=== PATIENT | male | born 1960 | race Caucasian/White ===

== ENCOUNTER 2017-09-14 13:57 | Observation (INO) ==
[2017-09-14] MEDS ORDERED: Aspirin 325 MG TABLET PO ONE (14:20)
--- NOTE | 2017-09-14 14:58 | Emergency Department Note ---
Disposition Clinical Impression: Unstable angina Disposition: Admitted As Inpatient Condition: Good Referrals: NONE,PCP [Primary Care Provider] - Forms: ED Satisfaction Letter Time of Disposition: 17:58 Chest Pain HPI - General Chief Complaint: ED Chest Pain Stated Complaint: chest pain Time Seen by Provider: 09/14/17 14:14 Source: patient Mode of arrival: ambulatory Limitations: no limitations Vital Signs Reviewed: Yes Nursing Notes Reviewed: Yes - History of Present Illness HPI Narrative: 56-year-old male presents to the emergency with chest pain 3 weeks. States he was seen in urgent care a couple weeks ago and they told him he had pericarditis. He did not get seen in the ER. He states he took some ibuprofen for it. He states he has not gotten any better 3 weeks. Associated with fatigue and exhaustion. Slight shortness of breath. No nausea or vomiting. He has no documented coronary history. No smoking. There is a family history of heart problems. Patient has pain that radiates to his back Severity scale (1-10): 2 - Related Data Home Medications Medication Instructions Recorded Confirmed Atorvastatin [Lipitor] 10 mg PO HS 09/14/17 09/14/17 Escitalopram [Lexapro] 10 mg PO DAILY 09/14/17 09/14/17 Losartan/Hydrochlorothiazide 1 tab PO DAILY 09/14/17 09/14/17 [Losartan-Hctz 50-12.5 mg Tab] Meloxicam [Mobic] 15 mg PO DAILY 09/14/17 09/14/17 Allergies Allergy/AdvReac Type Severity Reaction Status Date / Time Hydromorphone [From Dilaudid] Allergy Itching Verified 09/14/17 16:49 Oxycodone Allergy Itching Verified 09/14/17 16:49 Review of Systems: Gen.: No fevers or chills or new weakness Eyes: Denies double vision or any vision changes Ears: Denies any otalgia Pharynx: Denies sore throat CV: Positive for chest pain Respiratory: Denies any cough or sputum production. No shortness of breath. GI: Denies any nausea, vomiting, diarrhea, constipation. Denies abdominal pain Neuro: Denies any headache. No problems with ambulation. No numbness. Skin: Denies any rashes or abrasions Psych: Denies any depression or suicidal or homicidal ideation Musculoskeletal: Denies any arthralgias or myalgias All systems ED: reviewed and negative except as stated. Chest Pain PMH - Past Medical History Medical history: Reports: hypertension Psychiatric history: Reports: depression - Social History Smoking Status: Never smoker Alcohol use: Reports: occasionally Drug use: Reports: none Physical Exam HEENT: Head atraumatic normocephalic. Pharynx clear with no exudates. Oral mucosa moist. Uvula midline. TMs clear bilaterally. Trachea midline. No lymphadenopathy. Heart: Regular rate and rhythm. Normal S1 and S2. No gallops, rubs, or murmurs. Lungs: Clear to auscultation bilaterally. No evidence of any rhonchi wheezing or rales. Abdomen: Soft nontender nondistended. Positive bowel sounds. No peritoneal signs. Extremities: No evidence of cyanosis clubbing or edema. Neuro: Cranial nerves II through XII grossly intact. No focal motor or sensory deficits. Speech is clear. Skin: Normal color. dry. Psych: normal mentation. - General General appearance: alert Course Vital Signs Temperature 97.9 F 09/14/17 13:59 Pulse Rate 114 09/14/17 13:59 Respiratory Rate 18 09/14/17 13:59 Blood Pressure 173/100 09/14/17 13:59 O2 Sat by Pulse Oximetry 98 09/14/17 13:59 Temperature 97.9 F 09/14/17 13:59 Pulse Rate 114 09/14/17 13:59 Respiratory Rate 18 09/14/17 13:59 Blood Pressure 173/100 09/14/17 13:59 O2 Sat by Pulse Oximetry 98 09/14/17 13:59 Oxygen Delivery Oxygen Delivery Room Air Chest Pain - MDM Narrative Medical decision making narrative: Admit for chest pain rule out - Medical Records Medical records reviewed: Yes I reviewed the patient's medical records. - Lab Data Lab results reviewed: Yes I reviewed the patient's lab results. Result diagrams: 09/14/17 14:38 09/14/17 14:38 Lab Results 09/14/17 09/14/17 09/14/17 Range/Units 14:38 14:38 14:38 WBC 9.7 (4.3-11.1) K/mcL RBC 5.66 H (4.19-5.50) M/mcL Hgb 17.4 H (12.9-16.9) g/dL Hct 51.3 H (37.5-50.1) % MCV 90.6 (83.0-100.0) fL MCH 30.7 (28.0-33.3) pg MCHC 33.9 (31.6-35.5) g/dL RDW 13.1 (11.5-14.5) % Plt Count 302 (140-400) K/mcL MPV 11.6 (9.4-12.4) fL Immature Gran % 0.3 (0-4) % Seg Neutrophils % 60.0 % Lymphocytes % 29.9 % Monocytes % 7.2 % Eosinophils % 1.8 % Basophils % 0.8 % Neutrophils # 5.8 (1.6-8.9) K/mcL Lymphocytes # 2.9 (0.6-4.6) K/mcL Monocytes # 0.7 (0.0-1.3) K/mcL Eosinophils # 0.2 (0.0-0.6) K/mcL Basophils # 0.1 (0.0-0.2) K/mcL PT 11.5 (9.4-12.1) Seconds INR 1.1 APTT 25.3 L (26.0-36.0) Seconds Sodium 136 (136-145) mEq/L Potassium 3.8 (3.5-5.1) mEq/L Chloride 102 (98-107) mEq/L Carbon Dioxide 24 (23-29) mEq/L BUN 14 (6-20) mg/dL Creatinine 0.91 (0.70-1.30) mg/dL Est GFR ( Amer) > 60 (> 60) Est GFR (Non-Af Amer) > 60 (> 60) BUN/Creatinine Ratio 15 (6-26) Glucose 115 H (70-105) mg/dL Calculated Osmolality 283 (280-300) Calcium 9.8 (8.6-10.3) mg/dL Troponin I < 0.03 (< 0.04) ng/mL - Radiology Data Radiology results reviewed: Yes I reviewed the patient's radiology results. - EKG Data EKG attestation: Yes I reviewed and interpreted this EKG. EKG results narrative: EKG shows a rate of 109. Sinus tachycardia. TN interval 154. QRS 116. QTC 400. No signs of acute ischemia.
[2017-09-14 15:13] LABS: BUN/Creatinine Ratio 15 (6-26); Blood Urea Nitrogen 14 mg/dL (6-20); Calcium 9.8 mg/dL (8.6-10.3); Carbon Dioxide 24 mEq/L (23-29); Chloride 102 mEq/L (98-107); Glucose 115 mg/dL (70-105); Osmolality,Calculated 283 (280-300); Potassium 3.8 mEq/L (3.5-5.1); Sodium 136 mEq/L (136-145); eGFR For African Americans > 60 (> 60); eGFR For Non-African Americans > 60 (> 60)
[2017-09-14 15:30] LABS: INR 1.1; Prothrombin Time 11.5 Seconds (9.4-12.1)
[2017-09-14 15:32] LABS: Activated Partial Thrombo Time 25.3 Seconds (26.0-36.0)
[2017-09-14 15:36] LABS: Troponin I < 0.03 ng/mL (< 0.04)
[2017-09-14 16:19] LABS: Basophils # 0.1 K/mcL (0.0-0.2); Basophils % 0.8 %; Eosinophils # 0.2 K/mcL (0.0-0.6); Eosinophils % 1.8 %; Hematocrit 51.3 % (37.5-50.1); Hemoglobin 17.4 g/dL (12.9-16.9); Immature Granulocytes % 0.3 % (0-4); Lymphocytes # 2.9 K/mcL (0.6-4.6); Lymphocytes % 29.9 %; Mean Corpuscular HGB Conc 33.9 g/dL (31.6-35.5); Mean Corpuscular Hemoglobin 30.7 pg (28.0-33.3); Mean Corpuscular Volume 90.6 fL (83.0-100.0); Mean Platelet Volume 11.6 fL (9.4-12.4); Monocytes # 0.7 K/mcL (0.0-1.3); Monocytes % 7.2 %; Neutrophils # 5.8 K/mcL (1.6-8.9); Platelet Count 302 K/mcL (140-400); Red Blood Count 5.66 M/mcL (4.19-5.50); Red Cell Distribution Width 13.1 % (11.5-14.5)
[2017-09-14] MEDS ORDERED: Nitroglycerin 0.4 MG TAB.SUBL SL PRN (17:29)
[2017-09-14] MEDS ORDERED: Naloxone 0.4 MG/ML INJ IVP PRN (18:29)
[2017-09-14] MEDS ORDERED: Acetaminophen 325 MG TABLET PO PRN (18:29)
--- NOTE | 2017-09-14 18:50 | Internal Med History&Physical ---
Date of Encounter: 09/14/17 Time of Encounter: 18:35 Assessment and Plan (1) Chest pain Current visit: Yes Status: Acute 1 patient has been experiencing chest pressure for the past 3 weeks was originally diagnosed with pericarditis at an urgent care was given [place] without any relief. The past 3-4 days been experiencing sharp left chest pain radiating to his left shoulder with associated symptoms of fatigue and shortness of breath on exertion. The pain is worse when he lies down and there were no relieving factors. The chest pressure is constant. Given nitroglycerin without any relief. First set of troponins are negative we will continue to trend troponins We will obtain cardiac echo Continuous cardiac monitoring Nitroglycerin as needed for chest pain Continue with aspirin We will obtain CTA to rule out possible PE Consult cardiology as needed Qualifiers: Chest pain type: unspecified Qualified Code(s): R07.9 - Chest pain, unspecified (2) HTN (hypertension) Current visit: Yes Status: Acute Continue with home medications Qualifiers: Hypertension type: essential hypertension Qualified Code(s): I10 - Essential (primary) hypertension (3) HLD (hyperlipidemia) Current visit: No Status: Chronic Continue with statin-check lipid profile Qualifiers: Hyperlipidemia type: unspecified Qualified Code(s): E78.5 - Hyperlipidemia , unspecified (4) DVT prophylaxis Current visit: Yes Status: Acute [facility] Internal Medicine - H&P: HPI Chief complaint: CP Admitted From: Emergency Dept Plans for Post Hospital Care: Home History of present illness: Mr. Carter is a 56 year old male past uncle history of hypertension hyperlipidemia skin cancer questionable hepatitis B in 1988. According to the patient has been experiencing chest pressure describes as a dull ache which is midsternal nonradiating over the past 3 weeks. He did go to urgent care a few weeks ago and he was told he had pericarditis. He was prescribed Mobic, which really did not improve his chest pressure. Over the past 3-4 days he has been experiencing sharp left-sided pain which radiates to his left shoulder he also has been experiencing shortness of breath on exertion as well as fatigue. The pain is aggravated when he lies down there are no relieving factors. The pain is not reproducible. He did have a cardiac stress test 09/2015 which was negative-cardiac stress echo showed normal LV systolic function with EF of 65-70 %. Lab work in the ER was unremarkable troponins are negative. Chest x-ray with no acute process. EKG with no ST-T wave abnormalities. He was given nitroglycerin which did not relieve pain He continues to complain of dull aching midsternal chest pressure. He will be admitted for further workup and evaluation. I did review this case with he does agree with with plan Past Med Surg Social Fam HX - Past Medical History Medical history: hypertension Psychiatric history: depression - Social History Smoking Status: Never smoker Alcohol use: occasionally Drug use: none - Family History Father Living Status: Hx Family Cardiac Disorders: Yes (Heart disease) Hx Family Endocrine Disorder: Yes (Diabetes) Mother Living Status: Hx Family Cardiac Disorders: Yes (Heart disease) Hx Family Cancer: Yes (Breast cancer) Internal Medicine - H&P: Meds Atorvastatin [Lipitor] 10 mg PO HS 09/14/17 [History] Escitalopram [Lexapro] 10 mg PO DAILY 09/14/17 [History] Losartan/Hydrochlorothiazide [Losartan-Hctz 50-12.5 mg Tab] 1 tab PO DAILY 09/14 [History] Meloxicam [Mobic] 15 mg PO DAILY 09/14/17 [History] 3 Allergy/AdvReac Type Severity Reaction Status Date / Time Hydromorphone [From Dilaudid] Allergy Itching Verified 09/14/17 16:49 Oxycodone Allergy Itching Verified 09/14/17 16:49 All Systems PM: A 10-system review of systems was performed and is negative for pertinent findings except as documented above in the HPI. - Constitutional Constitutional: fatigue, no chills, no fever(s), no night sweats - EENT Eyes: no change in vision, no discharge, no pain, no photophobia Ears: no ear discharge, no ear pain, no tinnitus Nose, mouth and throat: as per HPI - Cardiovascular Cardiovascular ROS IM: chest pain, no diaphoresis, no lightheadedness, no palpitations, no syncope - Respiratory Respiratory: no cough, no dyspnea, no wheezing, no excessive phlegm production - Gastrointestinal Gastrointestinal: no abdominal pain, no diarrhea, no hematemesis, no hematochezia, no melena, no nausea, no vomiting - Musculoskeletal Musculoskeletal ROS IM: no numbness, no tingling - Integumentary Integumentary IM: no rash, no unusual bruising - Neurological Neurological ROS: no confusion, no convulsions, no focal weakness, no numbness, no tingling, no tremor(s) - Hematologic/Lymphatic Hematologic/Lymphatic: no easy bruising - Constitutional Vitals: Temp Pulse Resp BP Pulse Ox 97.9 F 114 18 173/100 98 09/14/17 13:59 09/14/17 13:59 09/14/17 13:59 09/14/17 13:59 09/14/17 13:59 General appearance: Present: A&O X 3 - Head Head exam: Present: atraumatic, normocephalic - Eye Eye exam: Present: PERRL, conjuntiva pink, sclera anicteric Pupils: Present: PERRL - Neck Neck exam general surgery: Present: supple, trachea midline. Absent: lymphadenopathy - Respiratory Respiratory exam: Present: CTAB. Absent: accessory muscle use, rales, rhonchi, wheezes - Cardiovascular Cardiovascular exam: Present: RRR, +S1, +S2. Absent: diastolic murmur, gallop, rubs, systolic murmur - GI/Abdominal GI/Abdominal exam: Present: normal bowel sounds, soft, no peritoneal signs. Absent: distended, tenderness - Extremities Exam Extremities exam: Present: warm, radial pulses palpable and symmetrical. Absent : calf tenderness, cyanotic, pedal edema - Neurological Exam Neurological exam: Present: CN II-XII intact, oriented X3, no focal deficits. Absent: pronater drift, facial droop, speech deficit - Skin Skin exam: Present: dry, intact Internal Med - H&P Results - Labs CBC & Chem 7: 09/14/17 14:38 09/14/17 14:38 - EKG Data Prior EKG available for review: yes When compared to previous EKG: there is no significant change - Diagnostic Studies Other Images Additional comments: Chest X-Ray 09/14/17 14:15 IMPRESSION: No acute cardiopulmonary process. D/ / 09/14/2017 14:51:33 Didier Mosquera MD / Ramya Vera Interpreting Provider: Didier Mosquera MD
[2017-09-15 02:49] LABS: Basophils # 0.1 K/mcL (0.0-0.2); Basophils % 0.7 %; Eosinophils # 0.2 K/mcL (0.0-0.6); Eosinophils % 1.8 %; Hemoglobin 16.2 g/dL (12.9-16.9); Immature Granulocytes % 0.4 % (0-4); Lymphocytes # 2.7 K/mcL (0.6-4.6); Mean Corpuscular HGB Conc 35.2 g/dL (31.6-35.5); Mean Corpuscular Hemoglobin 30.7 pg (28.0-33.3); Mean Corpuscular Volume 87.3 fL (83.0-100.0); Mean Platelet Volume 11.2 fL (9.4-12.4); Monocytes # 0.7 K/mcL (0.0-1.3); Monocytes % 7.8 %; Neutrophils # 5.3 K/mcL (1.6-8.9); Platelet Count 259 K/mcL (140-400); Red Blood Count 5.27 M/mcL (4.19-5.50); Red Cell Distribution Width 13.1 % (11.5-14.5); Segmented Neutrophils % 59.3 %
[2017-09-15 03:04] LABS: BUN/Creatinine Ratio 18 (6-26); Blood Urea Nitrogen 15 mg/dL (6-20); Carbon Dioxide 26 mEq/L (23-29); Chloride 104 mEq/L (98-107); Chol/HDL Ratio 7.4 (0-4.9); Cholesterol 206 mg/dL (< 200); Glucose 103 mg/dL (70-105); HDL Cholesterol 28 mg/dL (40-59); LDL Cholesterol,Calculated 144 mg/dL (0-99); Osmolality,Calculated 285 (280-300); Potassium 3.8 mEq/L (3.5-5.1); Sodium 137 mEq/L (136-145); Triglycerides 171 mg/dL (< 150); eGFR For African Americans > 60 (> 60); eGFR For Non-African Americans > 60 (> 60)
[2017-09-15] MEDS ORDERED: Aspirin 81 MG TAB.CHEW PO SCH (09:00)
[2017-09-15] MEDS ORDERED: Losartan/HCTZ 50-12.5 TABLET PO SCH (09:00)
[2017-09-15 14:51] VITALS: BP 129/86
--- NOTE | 2017-09-15 15:40 | Discharge Summary ---
- NOTES TO OUTPATIENT PROVIDER Notes to Outpatient Provider: Follow up with PCP as scheduled on 09/17/17. PCP can determine if statin should be continued (patient states has severe bilateral leg cramps). PCP can call hospital to follow up on ECHO results. Date of Encounter: 09/15/17 Time of Encounter: 15:37 - Discharge Diagnosis (1) Chest pain Priority: Primary Status: Acute Qualifiers: Chest pain type: unspecified Qualified Code(s): R07.9 - Chest pain, unspecified (2) HTN (hypertension) Priority: Secondary Status: Chronic Qualifiers: Hypertension type: essential hypertension Qualified Code(s): I10 - Essential (primary) hypertension (3) HLD (hyperlipidemia) Priority: Secondary Status: Chronic Qualifiers: Hyperlipidemia type: unspecified Qualified Code(s): E78.5 - Hyperlipidemia , unspecified (4) DVT prophylaxis Priority: Secondary Status: Acute Hospital course: Mr. Carter is a 56 year old male admitted for chest pain that started 3 weeks ago. He was admitted for observation to general medical floor with telemetry. Cardiac enzymes trended negative. CTA was negative for PE. ECHO was completed , but could not be read by coil spring assembler until tomorrow. His chest pain is greatly improved; now just a substernal ache. He states that he wants to go home. He already has follow up appointment scheduled with his PCP on 09/17/17. He will follow up on his ECHO results at that appointment. Lipid panel showed high LDL; he is on low dose statin. He states that he has severe BLE cramps. I advised him that he could hold his statin until he follows up with his PCP, and she can determine whether he can stop it. He will need alternative ways to manage his hyperlipidemia. Patient has met maximum benefit of this hospitalization and will be discharged home in stable condition. Discharge discussed with: patient, family, nurse - Time Spent with Patient Total time spent providing and/or coordinating discharge services: Less than 30 minutes - Discharge Medications Home Medications: Atorvastatin [Lipitor] 10 mg PO HS 09/14/17 [History] Escitalopram [Lexapro] 10 mg PO DAILY 09/14/17 [History] Losartan/Hydrochlorothiazide [Losartan-Hctz 50-12.5 mg Tab] 1 tab PO DAILY 09/14 [History] Meloxicam [Mobic] 15 mg PO DAILY 09/14/17 [History] Allergies/Adverse Reactions: 3 Allergy/AdvReac Type Severity Reaction Status Date / Time Hydromorphone [From Dilaudid] Allergy Itching Verified 09/14/17 16:49 Oxycodone Allergy Itching Verified 09/14/17 16:49 Date of admission: 09/14/17 18:24 Primary care physician: PCP NONE Discharging clinician: Kyle Powell Anticipated date of discharge: 09/15/17 - Constitutional Vitals: Temp Pulse Resp BP Pulse Ox 97.5 F L 90 16 129/86 96 09/15/17 14:49 09/15/17 14:49 09/15/17 14:49 09/15/17 14:49 09/15/17 14:49 General appearance: Present: cooperative, A&O X 3, pleasant, no acute distress, answers questions appropriately - Respiratory Respiratory exam: Present: CTAB. Absent: accessory muscle use, rales, rhonchi, wheezes Additional comments: Normal WOB - Cardiovascular Cardiovascular exam: Present: RRR, +S1, +S2. Absent: diastolic murmur, gallop, rubs, systolic murmur Additional comments: No BLE edema - GI/Abdominal GI/Abdominal exam: Present: normal bowel sounds, soft. Absent: distended, hepatomegaly, mass, splenomegaly, tenderness - Psychiatric Psychiatric exam: Present: normal affect, normal mood. Absent: anxious, depressed - Skin Skin exam: Present: dry, intact, warm. Absent: cyanosis, rash - Patient Status Disposition: Home, Self-Care Condition: Good Functional capacity at discharge: independent ambulation Overall status at discharge: patient is progressing back to baseline - Discharge Instructions Instructions: Chest Pain (DC) Additional Instructions: Follow up with PCP as scheduled on 09/17/17. PCP can determine if statin should be continued (patient states has severe bilateral leg cramps). PCP can call hospital to follow up on ECHO results. - Diet and Activity Activity: resume usual activities as tolerated Diet: low fat, low cholesterol, low salt diet, other (Cardiac)
--- NOTE | 2017-09-18 18:54 | Electrocardiograph Report ---
[address] [place], [place] [address] Test Date: 2017-09-14 Pat Name: Torrey Carter Department: 104 Room: 2NE29 Gender: M Cert Occupational Therapy Asst: MINI : 1960 Requested By: Chapo Snyder Order Number: [id number] Reading MD: Kevin Fang MD Measurements Intervals [place] Rate: 109 P: 46 TN: 154 QRS: -1 QRSD: 116 T: 49 QT: 336 QTc: 400 Interpretive Statements SINUS TACHYCARDIA LEFT ATRIAL ENLARGEMENT MODERATE INTRAVENTRICULAR CONDUCTION DELAY BASELINE ARTIFACT COMPLICATES ACCURATE INTERPRETATION Electronically Signed On 09-18-2017 18:53:01 EDT by Kevin Fang MD
== END 2017-09-15 15:50 | disposition home or self-care (01) ==
LOC: 2NENU 13:57 → EMEROO 13:57 → 2NENU 18:42
PROVIDERS: ADMIT Student in an Organized Health Care Education/Training Program; ATTEND Family Medicine